=== PATIENT | male | born 1965 | race Caucasian/White ===

== ENCOUNTER 2016-11-13 22:53 | Emergency (ER) | payer OTHER, MEDICARE ==
[2016-11-13 23:03] VITALS: BP 151/88
[2016-11-13 23:40] LABS: ABSOLUTE BASOPHILS # (AUTO) 0.1 10^3/uL (0.0-0.2); ABSOLUTE LYMPHOCYTES (AUTO) 1.8 10^3/uL (0.5-4.7); ABSOLUTE NEUT (AUTO) 10.6 10^3/uL (1.7-8.2); BASOPHILS % (AUTO) 0.8 % (0-2); EOSINOPHILS % (AUTO) 0.3 % (0-6); HEMATOCRIT 46.3 % (37.9-51.0); HEMOGLOBIN 15.3 g/dL (13.5-17.0); HGB HCT DIFFERENCE -0.4; LYMPHOCYTES % (AUTO) 13.3 % (13-45); MEAN CORPUSCULAR HEMOGLOBIN 29.8 pg (27.0-33.4); MEAN CORPUSCULAR VOLUME 90 fl (80-97); MONOCYTES % (AUTO) 7.6 % (3-13); RED BLOOD COUNT 5.13 10^6/uL (4.35-5.55); RED CELL DISTRIBUTION WIDTH 14.5 % (11.5-14.0); WHITE BLOOD COUNT 13.5 10^3/uL (4.0-10.5)
--- NOTE | 2016-11-13 23:48 | ER Document Report ---
ED Medical Screen (RME) - General Chief Complaint: Post Surgical Bleeding Stated Complaint: POST OP ISSUE Mode of Arrival: Wheelchair Information source: Patient Notes: Patient with recent ablation at [facility]. Presents today for complaints of post op bleeding to the right leg. I have greeted and performed a rapid initial assessment of this patient. A comprehensive ED assessment and evaluation of the patient, analysis of test results and completion of the medical decision making process will be conducted by additional ED providers. TRAVEL OUTSIDE OF THE [place] IN LAST 30 DAYS: No - Related Data Allergies/Adverse Reactions: Sulfa (Sulfonamide Antibiotics) Allergy (Verified 11/13/16 23:16) Past Medical History - Social History Chew tobacco use (# tins/day): No Frequency of alcohol use: None Drug Abuse: None Renal/ Medical History: Denies: Hx Peritoneal Dialysis Physical Exam - Vital signs Vitals: Temp Pulse Resp BP Pulse Ox 97.6 F 82 16 151/88 H 96 11/13/16 22:58 11/13/16 22:58 11/13/16 22:58 11/13/16 22:58 11/13/16 22:58 Course - Vital Signs Vital signs: Temp Pulse Resp BP Pulse Ox 97.6 F 82 16 151/88 H 96 11/13/16 22:58 11/13/16 22:58 11/13/16 22:58 11/13/16 22:58 11/13/16 22:58 - Laboratory Result Diagrams: 11/13/16 23:29 Laboratory results interpreted by me: 11/13/16 23:29 WBC 13.5 H RDW 14.5 H Absolute Neutrophils 10.6 H
--- NOTE | 2016-11-14 03:24 | ER Document Report ---
Doctor's Note Notes: 11/14/16 03:23 I went to the patient's room to evaluate him. He was not there. I returned again 2 minutes later. He was still not there. I returned another 5 minutes later he was not there. I did speak with the golf technician who says that the patient did leave. Patient has eloped before I had a chance to talk to him or evaluate him.
== END 2016-11-14 03:13 | disposition left against medical advice (07) ==
LOC: ER 22:53
DX: Z04.8 Encounter for examination and observation for other specified reasons (principal); Z88.2 Allergy status to sulfonamides; Z53.20 Procedure and treatment not carried out because of patient's decision for unspecified reasons
CPT/HCPCS: 36415; 85025; 99281

== ENCOUNTER → 2017-10-06 | Outpatient (CLI) | payer OTHER, MEDICARE ==
[2017-10-06 14:19] LABS: ABSOLUTE BASOPHILS # (AUTO) 0.1 10^3/uL (0.0-0.2); ABSOLUTE EOSINOPHILS # (AUTO) 0.2 10^3/uL (0.0-0.6); ABSOLUTE LYMPHOCYTES (AUTO) 1.6 10^3/uL (0.5-4.7); ABSOLUTE MONOCYTES (AUTO) 0.6 10^3/uL (0.1-1.4); ABSOLUTE NEUT (AUTO) 4.3 10^3/uL (1.7-8.2); BASOPHILS % (AUTO) 0.8 % (0-2); EOSINOPHILS % (AUTO) 2.3 % (0-6); HEMATOCRIT 46.5 % (37.9-51.0); LYMPHOCYTES % (AUTO) 24.2 % (13-45); MEAN CORPUSCULAR HEMOGLOBIN 30.6 pg (27.0-33.4); MEAN CORPUSCULAR HGB CONC 34.4 g/dL (32.0-36.0); MEAN CORPUSCULAR VOLUME 89 fl (80-97); MONOCYTES % (AUTO) 8.4 % (3-13); RED BLOOD COUNT 5.21 10^6/uL (4.35-5.55); RED CELL DISTRIBUTION WIDTH 13.3 % (11.5-14.0); SEGMENTED NEUTROPHILS % (AUTO) 64.3 % (42-78); TOTAL CELLS COUNTED % (AUTO) 100 %; WHITE BLOOD COUNT 6.6 10^3/uL (4.0-10.5)
[2017-10-06 14:32] LABS: ALANINE AMINOTRANSFERASE 33 U/L (21-72); ALBUMIN 4.2 g/dL (3.5-5.0); ALKALINE PHOSPHATASE 67 U/L (38-126); ANION GAP 11 (5-19); ASPARTATE AMINO TRANSFERASE 22 U/L (17-59); BILIRUBIN,DIRECT 0.3 mg/dL (0.0-0.4); BILIRUBIN,TOTAL 0.4 mg/dL (0.2-1.3); BLOOD UREA NITROGEN 16 mg/dL (7-20); CALCIUM 9.7 mg/dL (8.4-10.2); CARBON DIOXIDE 25 mmol/L (22-30); CHLORIDE 107 mmol/L (98-107); GLUCOSE 92 mg/dL (75-110); POTASSIUM 4.2 mmol/L (3.6-5.0); SODIUM 143.1 mmol/L (137-145); TOTAL PROTEIN 6.5 g/dL (6.3-8.2)
[2017-10-06 14:39] LABS: PLATELET COUNT 174 10^3/uL (150-450)
== END ==
LOC: OD 12:48
PROVIDERS: ATTEND Orthopaedic Surgery
DX: M25.569 Pain in unspecified knee (principal)
CPT/HCPCS: 36415; 80053; 85025

== ENCOUNTER 2018-01-19 10:20 | Emergency (ER) | payer OTHER, MEDICARE ==
--- NOTE | 2018-01-19 10:43 | ER Document Report ---
ED Medical Screen (RME) - General TRAVEL OUTSIDE OF THE [place] IN LAST 30 DAYS: No <VLADIMIR SIU - Last Filed: 01/19/18 10:42> <SETH ZAVALA - Last Filed: 01/19/18 14:34> - General Chief Complaint: Knee Pain Stated Complaint: KNEE PAIN Time Seen by Provider: 01/19/18 10:40 - HPI Notes: 01/19/18 10:42 Patient sent over from the [place] to evaluate for possible left knee infection history infections in the past with surgery in the past to remove growth. 01/19/18 10:42 Patient is in jeans (VLADIMIR SIU) - Related Data Allergies/Adverse Reactions: Sulfa (Sulfonamide Antibiotics) Allergy (Verified 01/19/18 10:21) Past Medical History Renal/ Medical History: Denies: Hx Peritoneal Dialysis <VLADIMIR SIU - Last Filed: 01/19/18 10:42> Review of Systems - Review of Systems Musculoskeletal: Other - Knee pain <VLADIMIR SIU - Last Filed: 01/19/18 10:42> Physical Exam - Respiratory Respiratory status: No respiratory distress Chest status: Nontender Breath sounds: Normal Chest palpation: Normal <VLADIMIR SIU - Last Filed: 01/19/18 10:42> - Vital signs Vitals: Temp Pulse Resp BP Pulse Ox 98.1 F 70 20 158/91 H 97 01/19/18 10:23 01/19/18 10:23 01/19/18 10:23 01/19/18 10:23 01/19/18 10:23 Course - Laboratory Result Diagrams: 01/19/18 10:50 01/19/18 10:50 <SETH ZAVALA - Last Filed: 01/19/18 14:34> - Vital Signs Vital signs: Temp Pulse Resp BP Pulse Ox 98.1 F 70 20 158/91 H 97 01/19/18 10:23 01/19/18 10:23 01/19/18 10:23 01/19/18 10:23 01/19/18 10:23 - Laboratory Laboratory results interpreted by me: 01/19/18 01/19/18 10:50 10:50 RDW 14.2 H Sodium 148.1 H Glucose 124 H Doctor's Discharge <VLADIMIR SIU - Last Filed: 01/19/18 10:42> <SETH ZAVALA - Last Filed: 01/19/18 14:34> - Discharge Clinical Impression: Cellulitis Qualifiers: Site of cellulitis: unspecified site Qualified Code(s): L03.90 - Cellulitis, unspecified Condition: Good Disposition: HOME, SELF-CARE Instructions: Cellulitis ([facility]) Prescriptions: Doxycycline Hyclate 100 mg PO BID #14 capsule Tramadol HCl 50 mg PO Q6 #10 tablet
[2018-01-19 11:17] LABS: ABSOLUTE BASOPHILS # (AUTO) 0.1 10^3/uL (0.0-0.2); ABSOLUTE EOSINOPHILS # (AUTO) 0.2 10^3/uL (0.0-0.6); ABSOLUTE LYMPHOCYTES (AUTO) 1.3 10^3/uL (0.5-4.7); ABSOLUTE MONOCYTES (AUTO) 0.5 10^3/uL (0.1-1.4); ABSOLUTE NEUT (AUTO) 4.1 10^3/uL (1.7-8.2); EOSINOPHILS % (AUTO) 2.5 % (0-6); HEMOGLOBIN 16.1 g/dL (13.5-17.0); LYMPHOCYTES % (AUTO) 21.2 % (13-45); MEAN CORPUSCULAR HEMOGLOBIN 29.7 pg (27.0-33.4); MEAN CORPUSCULAR HGB CONC 33.5 g/dL (32.0-36.0); MEAN CORPUSCULAR VOLUME 89 fl (80-97); MONOCYTES % (AUTO) 7.5 % (3-13); PLATELET COUNT 201 10^3/uL (150-450); RED CELL DISTRIBUTION WIDTH 14.2 % (11.5-14.0); SEGMENTED NEUTROPHILS % (AUTO) 67.8 % (42-78); TOTAL CELLS COUNTED % (AUTO) 100 %; WHITE BLOOD COUNT 6.1 10^3/uL (4.0-10.5)
--- NOTE | 2018-01-19 11:33 | RADIOLOGY REPORT (SQ) ---
EXAM DESCRIPTION: KNEE LEFT 3 VIEWS COMPLETED DATE/TIME: 01/19/2018 11:05 am REASON FOR STUDY: pain left knee COMPARISON: None. NUMBER OF VIEWS: Four views. TECHNIQUE: AP, lateral, and both oblique radiographic images acquired of the left knee. LIMITATIONS: None. FINDINGS: MINERALIZATION: Normal. 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 No significant osteophytes. JOINT: No joint effusion. Mild symmetrical degenerative compromise of the knee joint compartments. OTHER: No other significant finding. IMPRESSION: Mild degenerative change. No acute bony findings. Fragmentation of the patella that ma y be related to old injury versus congenital anomaly. TECHNICAL DOCUMENTATION: JOB ID: [id number] [email or web address] All Rights Reserved Reading location - IP/workstation name: [email or web address]
[2018-01-19 11:48] LABS: ANION GAP 14 (5-19); BLOOD UREA NITROGEN 14 mg/dL (7-20); CALCIUM 9.6 mg/dL (8.4-10.2); CARBON DIOXIDE 28 mmol/L (22-30); CHLORIDE 106 mmol/L (98-107); GLUCOSE 124 mg/dL (75-110); POTASSIUM 4.3 mmol/L (3.6-5.0); SODIUM 148.1 mmol/L (137-145); URIC ACID 5.7 mg/dL (3.5-8.5)
[2018-01-19] MEDS ORDERED: HYDROMORPHONE HCL INJ/PF 2 MG/ML AMPULE IV ONE (12:43)
[2018-01-19] MEDS ORDERED: DOXYCYCLINE HYCLATE 100 MG TABLET PO ONE (13:53)
[2018-01-19 14:51] VITALS: BP 137/92
--- NOTE | 2018-01-19 16:06 | ER Document Report ---
ED General - General Chief Complaint: Knee Pain Stated Complaint: KNEE PAIN Time Seen by Provider: 01/19/18 10:40 TRAVEL OUTSIDE OF THE [place] IN LAST 30 DAYS: No - HPI Notes: 52-year-old male presents with left knee pain and soft tissue swelling. Patient is a history of previous soft tissue infection after operation. It was not in the joint but rather in a soft tissue lateral to his knee. He had been on antibiotics before around the time of surgery in September and then later during November but not since then. He states over last several days he has had increasing pain redness and slight swelling in the area although equivocal drainage. He was seen at the [facility] yesterday where they "did cultures", however, they told him to the ER to get evaluated. He denies any fever, chills or sweats, no vomiting or constitutional symptoms. He later describes some pain in his upper calf and popliteal fossa and distal posterior thigh. No other modifying factors, no other associated symptoms, no other provocative or palliative factors. - Related Data Allergies/Adverse Reactions: Sulfa (Sulfonamide Antibiotics) Allergy (Verified 01/19/18 10:21) Past Medical History - Social History Smoking Status: Never Smoker Frequency of alcohol use: None Drug Abuse: None Family History: Reviewed & Not Pertinent Patient has suicidal ideation: No Patient has homicidal ideation: No - Medical History Notes: Includes previous soft tissue infection - Past Medical History Cardiac Medical History: Reports: Hx Hypercholesterolemia Renal/ Medical History: Denies: Hx Peritoneal Dialysis Psychiatric Medical History: Reports: Hx Depression - anxiety Past Surgical History: Reports: Hx Orthopedic Surgery - Left hand Review of Systems - Review of Systems Notes: Review of systems as in the history of present illness, otherwise negative. Physical Exam - Vital signs Vitals: Temp Pulse Resp BP Pulse Ox 98.1 F 70 20 158/91 H 97 01/19/18 10:23 01/19/18 10:23 01/19/18 10:23 01/19/18 10:23 01/19/18 10:23 - Notes Notes: General: Well developed . HEENT: Normocephalic, atraumatic. Pupils equal round reactive to light. No JVD. Chest: No trauma. Respiratory: Good air exchange, normal excursion. Cardiac: Regular rhythm. No murmurs or gallops. Abdomen: Soft, benign. Nondistended. Nontender. Back: No asymmetry or gross abnormality. Motor: Grossly normal power and tone. Neurologic: Alert, nonfocal. Cranial nerves II-12 are intact. Sensation intact. Vascular: Well perfused. Normal peripheral pulses. Skin: No petechiae or purpura. Extremities: Left knee shows an superior lateral soft tissue an area approximately 5 x 5 cm of induration, no fluctuation, there is erythema and discoloration. Course - Re-evaluation Re-evalutation: 01/19/18 16:07 Well-appearing male with localized knee inflammation and infection. He actually shows me iPhone photos of progression of his previous infections, appears to be a vigorous and exuberant granulomatous reaction. However he does appear to have overlying cellulitis. Of note, the popliteal fossa pain is different, he does not have any significant joint pain or suspicion for septic joint. However, will rule out DVT. He will otherwise was seen by the physician in triage and labs have been ordered. Will reevaluate.0 Labs reviewed, unremarkable. Patient received IV analgesics. Of note, ultrasound is negative. Also of note, ultrasound of the area on his left knee shows no evidence of fluid collection. Patient be treated empirically for cellulitis, is given doxycycline and a prescription for the same. - Vital Signs Vital signs: Temp Pulse Resp BP Pulse Ox 98.6 F 66 18 137/92 H 96 01/19/18 14:44 01/19/18 14:44 01/19/18 14:44 01/19/18 14:44 01/19/18 14:44 - Laboratory Result Diagrams: 01/19/18 10:50 01/19/18 10:50 Laboratory results interpreted by me: 01/19/18 01/19/18 10:50 10:50 RDW 14.2 H Sodium 148.1 H Glucose 124 H Discharge - Discharge Clinical Impression: Cellulitis Qualifiers: Site of cellulitis: unspecified site Qualified Code(s): L03.90 - Cellulitis, unspecified Condition: Good Disposition: HOME, SELF-CARE Instructions: Cellulitis ([facility]) Prescriptions: Doxycycline Hyclate 100 mg PO BID #14 capsule Tramadol HCl 50 mg PO Q6 #10 tablet Referrals: IVETH HARRIS MD [Primary Care Provider] - Follow up as needed
--- NOTE | 2018-01-19 19:41 | XCELERA REPORT ---
[address] [address] Lower Extremity Venous Evaluation Name: ERNESTINE CRUZ Age: 52 yrs Gender: Male : 1965 Patient Status: Emergency Patient Location: ER Study Date: 01/19/2018 01:17 PM Procedure: The veins were evaluated for patency, spontaneous and phasic flow from the Common Femoral down to the infrageniculate vessles, on the left. Reason For Study: RO DVT, Also eval knee lesion for fluid Ordering Physician: SETH ZAVALA Performed By: Dane Ocasio Left Sided Venous Evaluation 1.3 x 1.0 x 1.0 cms hypoechoic mass in knee area. Normal vessel filling wall to wall, compression and augmentation as well as Colour flow down to the infrageniculate veins. Interpretation Summary Normal compression, patency, spontaneous and phasic flow of the left lower extremity veins. Small hypoechoic mass adjacent to left knee. : SETH ZAVALA > Rm Torres
== END 2018-01-19 14:51 | disposition home or self-care (01) ==
LOC: ER 10:20
DX: L03.116 Cellulitis of left lower limb (principal); M25.562 Pain in left knee; M79.89 Other specified soft tissue disorders; Z98.890 Other specified postprocedural states
CPT/HCPCS: 99284; 96374; 36415; 87040; 84550; 85025; 80048; 93971 ×2; 73562; J1170

== ENCOUNTER → 2018-04-16 | Outpatient (CLI) | payer OTHER, MEDICARE ==
--- NOTE | 2018-04-16 11:23 | RADIOLOGY REPORT (SQ) ---
EXAM DESCRIPTION: ELBOW LEFT >2 VIEWS COMPLETED DATE/TIME: 04/16/2018 11:15 am REASON FOR STUDY: NON-PRESSURE CHRONIC ULCER OF SKIN OF SITES W UNSP SEVERITY L98.499 NON-PRESSURE CHRONIC ULCER OF SKIN OF SITES W UNSP S COMPARISON: None. NUMBER OF VIEWS: Four views. TECHNIQUE: AP, lateral, and both oblique radiographic images acquired of the left elbow. LIMITATIONS: None. FINDINGS: MINERALIZATION: Normal. BONES: No acute fracture or dislocation. No worrisome bone lesions. No evidence of osteomyelitis. JOINT: No effusion. SOFT TISSUES: No soft tissue swelling. No foreign body. OTHER: No other significant finding. IMPRESSION: NEGATIVE STUDY OF THE LEFT ELBOW. NO RADIOGRAPHIC EVIDENCE OF ACUTE INJURY. TECHNICAL DOCUMENTATION: JOB ID: [id number] [employer]- All Rights Reserved Reading location - IP/workstation name: [email or web address]
[2018-04-16 11:50] LABS: ABSOLUTE BASOPHILS # (AUTO) 0.1 10^3/uL (0.0-0.2); ABSOLUTE EOSINOPHILS # (AUTO) 0.1 10^3/uL (0.0-0.6); ABSOLUTE LYMPHOCYTES (AUTO) 1.4 10^3/uL (0.5-4.7); ABSOLUTE MONOCYTES (AUTO) 0.6 10^3/uL (0.1-1.4); ABSOLUTE NEUT (AUTO) 4.4 10^3/uL (1.7-8.2); BASOPHILS % (AUTO) 0.8 % (0-2); EOSINOPHILS % (AUTO) 1.9 % (0-6); HEMATOCRIT 44.8 % (37.9-51.0); HEMOGLOBIN 15.2 g/dL (13.5-17.0); LYMPHOCYTES % (AUTO) 20.9 % (13-45); MEAN CORPUSCULAR HGB CONC 33.9 g/dL (32.0-36.0); MEAN CORPUSCULAR VOLUME 89 fl (80-97); MONOCYTES % (AUTO) 9.4 % (3-13); PLATELET COUNT 190 10^3/uL (150-450); RED BLOOD COUNT 5.05 10^6/uL (4.35-5.55); RED CELL DISTRIBUTION WIDTH 13.9 % (11.5-14.0); TOTAL CELLS COUNTED % (AUTO) 100 %; WHITE BLOOD COUNT 6.6 10^3/uL (4.0-10.5)
[2018-04-16 12:19] LABS: ALANINE AMINOTRANSFERASE 31 U/L (21-72); ALBUMIN 4.4 g/dL (3.5-5.0); ALKALINE PHOSPHATASE 63 U/L (38-126); ANION GAP 11 (5-19); ASPARTATE AMINO TRANSFERASE 19 U/L (17-59); BILIRUBIN,DIRECT 0.3 mg/dL (0.0-0.4); BILIRUBIN,TOTAL 0.5 mg/dL (0.2-1.3); BLOOD UREA NITROGEN 15 mg/dL (7-20); C-REACTIVE PROTEIN 11.5 mg/L (<10.0); CALCIUM 9.4 mg/dL (8.4-10.2); CARBON DIOXIDE 28 mmol/L (22-30); CHLORIDE 106 mmol/L (98-107); GLUCOSE 109 mg/dL (75-110); POTASSIUM 4.6 mmol/L (3.6-5.0); SODIUM 145.1 mmol/L (137-145); TOTAL PROTEIN 7.1 g/dL (6.3-8.2)
[2018-04-16 12:32] LABS: ERYTHROCYTE SEDIMENTATION RATE 5 mm/hr (0-20)
== END ==
LOC: OD 10:43
PROVIDERS: ATTEND Surgery
DX: L98.499 Non-pressure chronic ulcer of skin of other sites with unspecified severity (principal)
CPT/HCPCS: 36415; 80053; 85025; 85652; 86140

== ENCOUNTER 2018-07-17 19:35 | Emergency (ER) | payer OTHER, MEDICARE ==
--- NOTE | 2018-07-17 19:54 | ER Document Report ---
ED Medical Screen (RME) - General Chief Complaint: Swelling of Lower Extremity Stated Complaint: FOOT PAIN Time Seen by Provider: 07/17/18 19:52 Mode of Arrival: Ambulatory Information source: Patient TRAVEL OUTSIDE OF THE [place] IN LAST 30 DAYS: No - HPI Patient complains to provider of: R foot pain and swelling Onset: Other - Pt. with c/o of progressive pain and swelling with redness of R foor. Possible insect bite or sting - Related Data Allergies/Adverse Reactions: Sulfa (Sulfonamide Antibiotics) Allergy (Verified 01/19/18 10:21) Past Medical History - Past Medical History Cardiac Medical History: Reports: Hx Hypercholesterolemia Renal/ Medical History: Denies: Hx Peritoneal Dialysis Psychiatric Medical History: Reports: Hx Depression - anxiety Past Surgical History: Reports: Hx Orthopedic Surgery - Left hand Physical Exam - Vital signs Vitals: Temp Pulse Resp BP Pulse Ox 99.2 F 92 18 189/82 H 95 07/17/18 19:40 07/17/18 19:40 07/17/18 19:40 07/17/18 19:40 07/17/18 19:40 Course - Vital Signs Vital signs: Temp Pulse Resp BP Pulse Ox 99.2 F 92 18 189/82 H 95 07/17/18 19:40 07/17/18 19:40 07/17/18 19:40 07/17/18 19:40 07/17/18 19:40 Doctor's Discharge - Discharge Referrals: PORTIA CALHOUN MD [Primary Care Provider] - Follow up as needed
[2018-07-17 20:25] LABS: ABSOLUTE EOSINOPHILS # (AUTO) 0.1 10^3/uL (0.0-0.6); ABSOLUTE LYMPHOCYTES (AUTO) 1.2 10^3/uL (0.5-4.7); ABSOLUTE MONOCYTES (AUTO) 0.8 10^3/uL (0.1-1.4); ABSOLUTE NEUT (AUTO) 6.1 10^3/uL (1.7-8.2); BASOPHILS % (AUTO) 0.6 % (0-2); EOSINOPHILS % (AUTO) 1.5 % (0-6); HEMATOCRIT 46.2 % (37.9-51.0); HEMOGLOBIN 15.8 g/dL (13.5-17.0); LYMPHOCYTES % (AUTO) 14.2 % (13-45); MEAN CORPUSCULAR HEMOGLOBIN 30.5 pg (27.0-33.4); MEAN CORPUSCULAR HGB CONC 34.1 g/dL (32.0-36.0); MEAN CORPUSCULAR VOLUME 90 fl (80-97); PLATELET COUNT 193 10^3/uL (150-450); RED BLOOD COUNT 5.16 10^6/uL (4.35-5.55); RED CELL DISTRIBUTION WIDTH 13.7 % (11.5-14.0); SEGMENTED NEUTROPHILS % (AUTO) 73.7 % (42-78); TOTAL CELLS COUNTED % (AUTO) 100 %; WHITE BLOOD COUNT 8.2 10^3/uL (4.0-10.5)
--- NOTE | 2018-07-17 20:46 | RADIOLOGY REPORT (SQ) ---
EXAM DESCRIPTION: FOOT RIGHT COMPLETE COMPLETED DATE/TIME: 07/17/2018 8:31 pm REASON FOR STUDY: R foot pain and swelling COMPARISON: None. EXAM PARAMETERS: NUMBER OF VIEWS: Three views. TECHNIQUE: AP, lateral and oblique radiographic images acquired of the right foot. LIMITATIONS: None. FINDINGS: MINERALIZATION: Normal. BONES: No acute fracture or dislocation. No worrisome bone lesions. JOINTS: No effusion. SOFT TISSUES: Diffuse soft tissue swelling. No radiopaque foreign body. OTHER: No other significant finding. IMPRESSION: No osseous abnormality. Diffuse soft tissue swelling. TECHNICAL DOCUMENTATION: JOB ID: [id number] [employer]- All Rights Reserved Reading location - IP/workstation name: [email or web address]
[2018-07-17 20:47] LABS: ALANINE AMINOTRANSFERASE 29 U/L (21-72); ALBUMIN 4.6 g/dL (3.5-5.0); ALKALINE PHOSPHATASE 57 U/L (38-126); ANION GAP 15 (5-19); ASPARTATE AMINO TRANSFERASE 21 U/L (17-59); BILIRUBIN,DIRECT 0.2 mg/dL (0.0-0.4); BILIRUBIN,TOTAL 0.7 mg/dL (0.2-1.3); BLOOD UREA NITROGEN 15 mg/dL (7-20); CALCIUM 9.6 mg/dL (8.4-10.2); CARBON DIOXIDE 27 mmol/L (22-30); CHLORIDE 104 mmol/L (98-107); GLUCOSE 104 mg/dL (75-110); POTASSIUM 3.8 mmol/L (3.6-5.0); SODIUM 145.8 mmol/L (137-145); TOTAL PROTEIN 7.4 g/dL (6.3-8.2)
[2018-07-17] MEDS ORDERED: CEPHALEXIN 500 MG CAPSULE PO ONE (21:22)
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
[2018-07-17 22:11] VITALS: BP 144/66
== END 2018-07-17 22:12 | disposition home or self-care (01) ==
LOC: ER 19:35
DX: L03.115 Cellulitis of right lower limb (principal); I10 Essential (primary) hypertension; Z88.2 Allergy status to sulfonamides
CPT/HCPCS: 36415; 80053; 85025; 87040; 99284